=== PATIENT | female | born 1960 | race Caucasian/White ===

== ENCOUNTER 2017-12-10 15:03 | Outpatient (CLI) | payer BC ==
--- NOTE | 2017-12-10 15:40 | ULT ---
THYROID ULTRASOUND: COMPARISON: None. HISTORY: Fatigue. TECHNIQUE: Multiplanar, ya scale, and color Doppler images were obtained in a thyroid ultrasound. FINDINGS: There are tiny hypoechoic to anechoic lesions in both lobes of the thyroid. The majority of these re present cysts. Some of these may represent small hypoechoic nodules. The largest lesion was seen in the left lobe measuring 5 mm in greatest dimension. This has both solid and cystic features. The l esions are well circumscribed without suspicious calcifications. None of these lesions is greater th an 1 cm. IMPRESSION: The largest lesion in the thyroid is in the left lobe and is a TIRADS category 3 lesion. Given its s mall size, no further followup is recommended. POS: ERICA
== END 2017-12-10 15:04 | disposition home or self-care (01) ==
LOC: SCSULT 15:03
PROVIDERS: ATTEND Family Medicine
DX: R53.83 Other fatigue (principal); E07.9 Disorder of thyroid, unspecified
CPT/HCPCS: 76536

== ENCOUNTER 2020-03-06 09:16 | Outpatient (CLI) | payer BC ==
--- NOTE | 2020-03-06 10:14 | BD ---
EXAM: DEXA bone density examination HISTORY: 59-year-old postmenopausal female for screening COMPARISON: None FINDINGS: L1--bone mineral density 0.820 g/sq cm; T score -1.5 L2--bone mineral density 0.910 g/sq cm; T score -1.1 L3--bone mineral density 0.877 g/sq cm; T score -1.9 L4--bone mineral density 0.877 g/sq cm; T score -1.7 Total L1-L4--bone mineral density 0.870 g/sq cm; T score -1.6 Left femoral neck--bone mineral density0.712; T score -1.2 Total proximal left femur--bone mineral density 0.850; T score -0.8 IMPRESSION: Osteopenia. This patient has a 10 year WHO fracture risk of a major osteoporotic fracture of 6.4% and of a hip fracture of 0.4%.
== END 2020-03-06 09:17 | disposition home or self-care (01) ==
LOC: BICMAMMO 09:16
PROVIDERS: ATTEND Student in an Organized Health Care Education/Training Program
DX: Z13.820 Encounter for screening for osteoporosis (principal); M85.89 Other specified disorders of bone density and structure, multiple sites
CPT/HCPCS: 77080